=== PATIENT | female | born 1955 | race Caucasian/White ===

== ENCOUNTER → 2020-11-25 | Outpatient (CLI) | payer MEDICARE ==
[2020-11-25 16:09] LABS: HEMATOCRIT 33.4 % (37.0-47.0); MEAN CELL VOLUME 116.4 fl (81.0-99.0); MEAN CORPUSCULAR HGB 35.2 pg (27.0-31.0); MEAN CORPUSCULAR HGB CONC 30.2 g/dl (33.0-37.0); MEAN PLATELET VOLUME 10.6 fl (9.6-12.3); PLATELET COUNT AUTOMATED 143 10*3/uL (130-400); RED BLOOD COUNT 2.87 10*6/uL (4.10-5.10); RED CELL DISTRI WIDTH 15.2 % (0-14.5); WHITE BLOOD COUNT 3.8 10*3/uL (4.8-10.8)
[2020-11-25 16:25] LABS: ALBUMIN 4.5 gm/dl (3.1-4.5); ALKALINE PHOSPHATASE 127 U/L (45-117); BILIRUBIN, DIRECT < 0.1 mg/dL (0.0-0.2); BUN 34 mg/dl (7-24); CHLORIDE 110 mmol/L (98-107); CHOLESTEROL 174 mg/dL (<200); CREATININE 1.75 mg/dL (0.55-1.02); POTASSIUM 4.4 mmol/L (3.5-5.1); SGOT/AST 18 IU/L (3-35); SGPT/ALT 17 U/L (12-78); SODIUM 141 mmol/L (136-145); THYROXINE (T4) TOTAL 2.9 ug/dl (4.8-13.9); TRIGLYCERIDES 100 mg/dl (<150); VLDL CHOLESTEROL 20 mg/dL (6-40)
[2020-11-25 16:26] LABS: HDL CHOLESTEROL 55 mg/dl (40-60); LDL CHOLESTEROL 99 mg/dL (9-159)
[2020-11-25 16:49] LABS: PLATELET SUFFICIENCY NORMAL (NORMAL); TOTAL CELLS COUNTED 100 #CELLS
== END | disposition home or self-care (01) ==
LOC: LAB 15:02
PROVIDERS: ATTEND Internal Medicine
DX: I10 Essential (primary) hypertension (principal); E11.9 Type 2 diabetes mellitus without complications; I25.10 Atherosclerotic heart disease of native coronary artery without angina pectoris

== ENCOUNTER → 2021-01-29 | Outpatient (CLI) | payer MEDICARE, MEDICAID ==
[2021-01-29 08:41] LABS: ALBUMIN 4.3 gm/dl (3.1-4.5); CREATININE 1.56 mg/dL (0.55-1.02); POTASSIUM 3.9 mmol/L (3.5-5.1)
[2021-01-29 08:42] LABS: THYROXINE (T4) TOTAL 2.6 ug/dl (4.8-13.9)
== END | disposition home or self-care (01) ==
LOC: US 01-20 12:00 → CARD 01-20 13:00 → US 01-24 09:00 → LAB 07:03 → CARD 07:30
PROVIDERS: ATTEND Internal Medicine
DX: N18.4 Chronic kidney disease, stage 4 (severe) (principal); I50.32 Chronic diastolic (congestive) heart failure; N28.89 Other specified disorders of kidney and ureter

== ENCOUNTER → 2021-02-03 | Outpatient (CLI) | payer MEDICARE, MEDICAID | END | disposition home or self-care (01) | LOC: RAD 13:39 | PROVIDERS: ATTEND Orthopaedic Surgery | DX: M85.89 Other specified disorders of bone density and structure, multiple sites (principal); M16.11 Unilateral primary osteoarthritis, right hip; Z78.0 Asymptomatic menopausal state ==

== ENCOUNTER → 2021-04-18 | Outpatient (CLI) | payer MEDICARE, MEDICAID ==
[~2021-04-18] MED LIST: ALDACTONE25 MG PO; CLONAZEPAM1 MG PO; COLCRYS0.6 M1 PO; GABAPENTIN800 MG PO; LASIX40 MG PO; LEVOTHYROXINE150 MCG PO; LEXAPRO10 MG PO; MELOXICAM15 MG PO; MIRTAZAPINE15 M2 PO; PANTOPRAZOLE SO20 MG PO; ROPINIROLE HYD0.5 MG PO
== END | disposition home or self-care (01) ==
LOC: RAD 12:54
PROVIDERS: ATTEND Internal Medicine
DX: J44.9 Chronic obstructive pulmonary disease, unspecified (principal)

== ENCOUNTER → 2021-04-28 | Outpatient (CLI) | payer MEDICARE, MEDICAID ==
[2021-04-28 14:57] LABS: HEMATOCRIT 31.1 % (37.0-47.0); MEAN CELL VOLUME 111.1 fl (81.0-99.0); MEAN CORPUSCULAR HGB 32.9 pg (27.0-31.0); MEAN CORPUSCULAR HGB CONC 29.6 g/dl (33.0-37.0); PLATELET COUNT AUTOMATED 130 10*3/uL (130-400); RED CELL DISTRI WIDTH 15.9 % (0-14.5); WHITE BLOOD COUNT 4.1 10*3/uL (4.8-10.8)
[2021-04-28 15:24] LABS: ALBUMIN 4.1 gm/dl (3.1-4.5); CREATININE 1.34 mg/dL (0.55-1.02); POTASSIUM 3.8 mmol/L (3.5-5.1)
[2021-04-28 15:53] LABS: TOTAL CELLS COUNTED 100 #CELLS
[2021-04-28 15:54] LABS: PLATELET SUFFICIENCY NORMAL (NORMAL)
[2021-04-28 16:11] LABS: PTH INTACT 149.6 pg/mL (18.5-88.0)
== END | disposition home or self-care (01) ==
LOC: LAB 14:04
PROVIDERS: ATTEND Internal Medicine Nephrology
DX: N18.4 Chronic kidney disease, stage 4 (severe) (principal)

== ENCOUNTER → 2021-05-01 | Outpatient (CLI) | payer MEDICARE, MEDICAID ==
[2021-05-01 13:04] LABS: BILIRUBIN Negative (Negative); BLOOD Negative (Negative); CLARITY Cloudy (Clear); COLOR Yellow (Yellow); GLUCOSE Negative (Negative); KETONE Trace (Negative); LEUKO ESTERASE 1+ (Negative); NITRITE Negative (Negative); PH 5.5 (4.5-8.0); SPECIFIC GRAVITY >= 1.030 (1.001-1.030)
[2021-05-01 13:20] LABS: BACTERIA 2+; EPITHELIAL CELLS 16-20; RBC 0-2 rbc/hpf (0-2)
== END | disposition home or self-care (01) ==
LOC: LAB 12:03
PROVIDERS: ATTEND Internal Medicine Nephrology
DX: N18.4 Chronic kidney disease, stage 4 (severe) (principal)

== ENCOUNTER 2021-05-14 14:00 | Inpatient (IN) | payer MEDICARE, MEDICAID ==
[~2021-05-14] VITALS: Ht 170.1 cm; Wt 89.8 kg
[2021-05-14 14:09] VITALS: BP 157/67
[2021-05-14 15:06] LABS: BILIRUBIN Negative (Negative); BLOOD 3+ (Negative); CLARITY Clear (Clear); COLOR Dark Yellow (Yellow); GLUCOSE Negative (Negative); KETONE Trace (Negative); LEUKO ESTERASE Trace (Negative); NITRITE Negative (Negative); SPECIFIC GRAVITY >= 1.030 (1.001-1.030)
[2021-05-14 15:41] LABS: BACTERIA TRACE
[2021-05-14 16:04] LABS: BASO % 0.1 % (0.0-1.0); EOS % 0.1 % (1.0-4.0); HEMATOCRIT 37.8 % (37.0-47.0); LYMPH # 1.6 10*3/uL (1.3-4.4); LYMPH % 19.6 % (27.0-41.0); MEAN CELL VOLUME 105.6 fl (81.0-99.0); MEAN CORPUSCULAR HGB 32.7 pg (27.0-31.0); MEAN PLATELET VOLUME 10.5 fl (9.6-12.3); MONO % 13.1 % (3.0-9.0); NEUT # 5.2 10*3/uL (2.3-7.9); NEUT % 66.3 % (47.0-73.0); PLATELET COUNT AUTOMATED 158 10*3/uL (130-400); RED BLOOD COUNT 3.58 10*6/uL (4.10-5.10); RED CELL DISTRI WIDTH 16.2 % (0-14.5); WHITE BLOOD COUNT 7.9 10*3/uL (4.8-10.8)
[2021-05-14 16:20] LABS: ALBUMIN 4.2 gm/dl (3.1-4.5); CREATININE 1.36 mg/dL (0.55-1.02); POTASSIUM 3.5 mmol/L (3.5-5.1); TOTAL PROTEIN 8.1 gm/dL (6.4-8.2)
[2021-05-14 16:22] LABS: TROPONIN I 0.359 ng/ml (<0.045)
[2021-05-14 17:00] VITALS: BP 150/70
[2021-05-14 21:30] VITALS: BP 140/60
[2021-05-14 22:02] VITALS: BP 147/76
[2021-05-15 00:09] VITALS: BP 145/63
[2021-05-15 00:43] VITALS: BP 122/61
[2021-05-15 01:38] VITALS: BP 138/61
[2021-05-15] MEDS ORDERED: MIRTAZAPINE15 M2 PO (01:39)
[2021-05-15] MEDS ORDERED: CLONAZEPAM1 MG PO (01:40)
[2021-05-15] MEDS ORDERED: ROPINIROLE HYD0.5 MG PO (01:41)
[2021-05-15] MEDS ORDERED: GABAPENTIN800 MG PO (01:41)
[2021-05-15] MEDS ORDERED: ALDACTONE25 MG PO (01:44)
[2021-05-15] MEDS ORDERED: LEVOTHYROXINE150 MCG PO (01:44)
[2021-05-15] MEDS ORDERED: PANTOPRAZOLE SO20 MG PO (01:47)
[2021-05-15] MEDS ORDERED: COLCRYS0.6 M1 PO (02:16)
[2021-05-15] MEDS ORDERED: LEXAPRO10 MG PO (02:18)
[2021-05-15] MEDS ORDERED: LASIX40 MG PO (02:18)
[2021-05-15] MEDS ORDERED: MELOXICAM15 MG PO (02:19)
[2021-05-15 07:11] LABS: BASO % 0.2 % (0.0-1.0); HEMATOCRIT 32.9 % (37.0-47.0); LYMPH # 2.4 10*3/uL (1.3-4.4); LYMPH % 36.6 % (27.0-41.0); MEAN CELL VOLUME 105.1 fl (81.0-99.0); MEAN CORPUSCULAR HGB 32.6 pg (27.0-31.0); MEAN PLATELET VOLUME 11.3 fl (9.6-12.3); MONO # 0.8 10*3/uL (0.1-1.0); NEUT # 3.4 10*3/uL (2.3-7.9); NEUT % 50.7 % (47.0-73.0); PLATELET COUNT AUTOMATED 143 10*3/uL (130-400); RED BLOOD COUNT 3.13 10*6/uL (4.10-5.10); RED CELL DISTRI WIDTH 16.5 % (0-14.5); WHITE BLOOD COUNT 6.7 10*3/uL (4.8-10.8)
[2021-05-15 07:24] LABS: ALBUMIN 3.7 gm/dl (3.1-4.5); CREATININE 1.14 mg/dL (0.55-1.02); POTASSIUM 3.5 mmol/L (3.5-5.1); TOTAL PROTEIN 6.8 gm/dL (6.4-8.2)
[2021-05-15 07:38] LABS: THYROID STIM HORMONE (HS) 52.8 uIU/ml (0.358-4.75)
[2021-05-15 08:00] VITALS: BP 113/53
[2021-05-15 12:00] VITALS: BP 145/58
== END 2021-05-15 16:10 | disposition left against medical advice (07) | DRG 280 ==
LOC: ED 14:00 → EDHOLD 22:27 → 4E 22:27 → EDHOLD 05-15 00:02 → 4E 05-15 00:38
PROVIDERS: Emergency Medicine; Internal Medicine; ADMIT Family Medicine; ATTEND Family Medicine
DX: I13.0 Hypertensive heart and chronic kidney disease with heart failure and stage 1 through stage 4 chronic kidney disease, or unspecified chronic kidney disease (principal); G93.41 Metabolic encephalopathy; I21.A1 Myocardial infarction type 2; N17.0 Acute kidney failure with tubular necrosis; I50.31 Acute diastolic (congestive) heart failure; E86.0 Dehydration; N18.32 Chronic kidney disease, stage 3b; M50.321 Other cervical disc degeneration at C4-C5 level; E83.41 Hypermagnesemia; K21.9 Gastro-esophageal reflux disease without esophagitis; E11.65 Type 2 diabetes mellitus with hyperglycemia; E03.9 Hypothyroidism, unspecified; R53.1 Weakness; M25.562 Pain in left knee; M25.451 Effusion, right hip; D53.9 Nutritional anemia, unspecified; R74.01 Elevation of levels of liver transaminase levels; R79.82 Elevated C-reactive protein (CRP); R79.89 Other specified abnormal findings of blood chemistry; M16.11 Unilateral primary osteoarthritis, right hip; E11.22 Type 2 diabetes mellitus with diabetic chronic kidney disease; Z96.651 Presence of right artificial knee joint; E87.8 Other disorders of electrolyte and fluid balance, not elsewhere classified; K52.9 Noninfective gastroenteritis and colitis, unspecified; Z53.29 Procedure and treatment not carried out because of patient's decision for other reasons; G25.81 Restless legs syndrome; I95.1 Orthostatic hypotension; Z90.49 Acquired absence of other specified parts of digestive tract; Z79.899 Other long term (current) drug therapy; Z82.49 Family history of ischemic heart disease and other diseases of the circulatory system; Z86.73 Personal history of transient ischemic attack (TIA), and cerebral infarction without residual deficits

== ENCOUNTER → 2022-01-08 | Outpatient (CLI) | payer MEDICARE ==
[2022-01-08 12:57] LABS: HEMATOCRIT 33.3 % (37.0-47.0); MEAN CELL VOLUME 116.4 fl (81.0-99.0); MEAN CORPUSCULAR HGB 35.3 pg (27.0-31.0); MEAN CORPUSCULAR HGB CONC 30.3 g/dl (33.0-37.0); MEAN PLATELET VOLUME 10.8 fl (9.6-12.3); PLATELET COUNT AUTOMATED 132 10*3/uL (130-400); RED BLOOD COUNT 2.86 10*6/uL (4.10-5.10); RED CELL DISTRI WIDTH 17.1 % (0-14.5); WHITE BLOOD COUNT 3.8 10*3/uL (4.8-10.8)
[2022-01-08 13:00] LABS: MANUAL DIFF REFLEX YES
[2022-01-08 13:18] LABS: CREATININE 1.46 mg/dL (0.55-1.02)
[2022-01-08 13:21] LABS: ALKALINE PHOSPHATASE 79 U/L (45-117); CHOLESTEROL 178 mg/dL (<200); LDL CHOLESTEROL 101 mg/dL (9-159); SGOT/AST 26 IU/L (3-35); SGPT/ALT 19 U/L (12-78); TOTAL PROTEIN 7.9 gm/dL (6.4-8.2); TRIGLYCERIDES 183 mg/dl (<150)
[2022-01-08 13:22] LABS: ATYPICAL LYMPHS 1 % (0-0); BASOPHILS 1 % (0-1); TOTAL CELLS COUNTED 100 #CELLS
[2022-01-08 13:23] LABS: OVALOCYTES FEW; PLATELET SUFFICIENCY NORMAL (NORMAL); POLYCHROMASIA SLIGHT; ROULEAUX SLIGHT
[2022-01-08 13:26] LABS: VITAMIN D, 25-HYDROXY 7.7 ng/mL (30-100)
[2022-01-08 13:27] LABS: FERRITIN 88.7 ng/mL (10.0-291.0)
== END | disposition home or self-care (01) ==
LOC: LAB 12:13
PROVIDERS: Internal Medicine; ATTEND Internal Medicine Nephrology
DX: E11.22 Type 2 diabetes mellitus with diabetic chronic kidney disease (principal); N18.4 Chronic kidney disease, stage 4 (severe); E78.2 Mixed hyperlipidemia; D64.9 Anemia, unspecified

== ENCOUNTER → 2022-04-09 | Outpatient (CLI) | payer MEDICARE ==
[2022-04-09 13:10] LABS: HEMATOCRIT 36.6 % (37.0-47.0); MEAN CELL VOLUME 108.9 fl (81.0-99.0); MEAN CORPUSCULAR HGB 32.4 pg (27.0-31.0); MEAN CORPUSCULAR HGB CONC 29.8 g/dl (33.0-37.0); MEAN PLATELET VOLUME 11.2 fl (9.6-12.3); PLATELET COUNT AUTOMATED 112 10*3/uL (130-400); RED BLOOD COUNT 3.36 10*6/uL (4.10-5.10); RED CELL DISTRI WIDTH 15.9 % (0-14.5); WHITE BLOOD COUNT 2.4 10*3/uL (4.8-10.8)
[2022-04-09 13:24] LABS: BUN 15 mg/dl (7-24); CHLORIDE 114 mmol/L (98-107); CREATININE 1.08 mg/dL (0.55-1.02); POTASSIUM 3.7 mmol/L (3.5-5.1); SODIUM 143 mmol/L (136-145); THYROXINE (T4) TOTAL 8.6 ug/dl (4.8-13.9); URIC ACID 7.1 mg/dL (2.6-6.0)
[2022-04-09 13:28] LABS: MANUAL DIFF REFLEX YES
[2022-04-09 13:31] LABS: TOTAL CELLS COUNTED 100 #CELLS
[2022-04-09 13:32] LABS: PLATELET SUFFICIENCY LOW (NORMAL); POLYCHROMASIA SLIGHT
== END | disposition home or self-care (01) ==
LOC: CARD 12:00 → LAB 12:11
PROVIDERS: Internal Medicine; ATTEND Internal Medicine Cardiovascular Disease
DX: I13.0 Hypertensive heart and chronic kidney disease with heart failure and stage 1 through stage 4 chronic kidney disease, or unspecified chronic kidney disease (principal); I50.32 Chronic diastolic (congestive) heart failure; N18.30 Chronic kidney disease, stage 3 unspecified; D50.9 Iron deficiency anemia, unspecified